=== PATIENT | female | born 1965 | race African-American/Black ===

== ENCOUNTER → 2022-05-02 | Emergency (ER) | payer OTHER | END | disposition home or self-care (01) | LOC: VM.ED 10:10 | DX: S39.012A Strain of muscle, fascia and tendon of lower back, initial encounter (principal); S60.212A Contusion of left wrist, initial encounter; M62.830 Muscle spasm of back; X50.0XXA Overexertion from strenuous movement or load, initial encounter; Y99.0 Civilian activity done for income or pay | CPT/HCPCS: 99283 ==